=== PATIENT | female | born 1995 | race Two or more races ===

== ENCOUNTER 2017-07-12 22:18 | Emergency (ER) | payer MEDICAID ==
[~2017-07-12] VITALS: Ht 157.5 cm; Wt 86.2 kg
[2017-07-12] MEDS ORDERED: IV NORMAL SALINE 1000ML BAG 1,000 ML IV SCH (23:00)
--- NOTE | 2017-07-12 23:03 | PHYS DOC ---
Past Medical History Past Medical History: Anxiety, Bipolar, Depression, Hyperthyroid Past Surgical History: No Surgical History Additional Information: non smoker Alcohol Use: Occasionally Drug Use: None Social History Narrative: deaf Adult General Chief Complaint Chief Complaint: COUGH HPI HPI Patient is a 21 year old female who presents with cough and difficulty breathing. She has had a nonproductive cough for the past 3-4 days. No hemoptysis. Does not smoke tobacco. Does not take control pills. No recent travel. She denies any chest pain. Feels her heart racing at times. No known fever. No vomiting. Sharp chest pain; "7"; non radiating. Review of Systems Review of Systems Constitutional: Denies fever or chills Eyes: Denies change in visual acuity, redness, or eye pain HENT: Denies nasal congestion or sore throat Respiratory: POS cough and shortness of breath Cardiovascular: chest pain. GI: Denies abdominal pain, nausea, vomiting, bloody stools or diarrhea : Denies dysuria or hematuria Musculoskeletal: Denies back pain or joint pain Integument: Denies rash or skin lesions Neurologic: Denies headache, focal weakness or sensory changes Current Medications Current Medications Current Medications Medications (Trade) Dose Ordered Sig/Janeth Start Time Stop Time Status Last Admin Dose Admin Sodium Chloride 1,000 ml @ 1,000 mls/hr Q1H 07/12/17 23:00 07/12/17 23:59 DC 07/12/17 23:02 1,000 MLS/HR Allergies Allergies Allergies Coded Allergies Type Severity Reaction Last Updated Verified No Known Drug Allergies 07/12/17 No Physical Exam Physical Exam Constitutional: Well developed, well nourished, no acute distress, non-toxic appearance. HENT: Normocephalic, atraumatic, bilateral external ears normal, oropharynx moist, no oral exudates, nose normal. Eyes: PERRLA, EOMI, conjunctiva normal, no discharge. Neck: Normal range of motion, no tenderness, supple, no stridor. Cardiovascular:Heart rate regular rhythm, tachycardic, no murmur Lungs & Thorax: Bilateral breath sounds clear to auscultation Abdomen: Bowel sounds normal, soft, no tenderness, no masses, no pulsatile masses. Skin: Warm, dry, no erythema, no rash. Back: No tenderness, no CVA tenderness. Extremities: No tenderness, no cyanosis, no clubbing, ROM intact, no edema. Neurologic: Alert and oriented X 3, normal motor function, normal sensory function, no focal deficits noted. Psychologic: Affect normal, judgement normal, mood normal. Current Patient Data Vital Signs Vital Signs Date Time Temp Pulse Resp B/P (MAP) Pulse Ox O2 Delivery O2 Flow Rate FiO2 07/12/17 23:45 99 24 127/63 (84) 99 Room Air 07/12/17 22:37 98.5 98.5 Lab Values Laboratory Tests Test 07/12/17 22:39 07/12/17 23:00 POC Urine HCG, Qualitative Hcg negative (Negative) White Blood Count 8.8 x10^3/uL (4.0-11.0) Red Blood Count 4.29 x10^6/uL (3.50-5.40) Hemoglobin 13.1 g/dL (12.0-15.5) Hematocrit 37.9 % (36.0-47.0) Mean Corpuscular Volume 88 fL (79-100) Mean Corpuscular Hemoglobin 31 pg (25-35) Mean Corpuscular Hemoglobin Concent 35 g/dL (31-37) Red Cell Distribution Width 13.0 % (11.5-14.5) Platelet Count 260 x10^3/uL (140-400) Neutrophils (%) (Auto) 61 % (31-73) Lymphocytes (%) (Auto) 25 % (24-48) Monocytes (%) (Auto) 10 % (0-9) H Eosinophils (%) (Auto) 3 % (0-3) Basophils (%) (Auto) 1 % (0-3) Neutrophils # (Auto) 5.4 x10^3uL (1.8-7.7) Lymphocytes # (Auto) 2.2 x10^3/uL (1.0-4.8) Monocytes # (Auto) 0.9 x10^3/uL (0.0-1.1) Eosinophils # (Auto) 0.3 x10^3/uL (0.0-0.7) Basophils # (Auto) 0.1 x10^3/uL (0.0-0.2) D-Dimer (Natacha) 0.38 ug/mlFEU (0.00-0.50) Sodium Level 140 mmol/L (136-145) Potassium Level 3.0 mmol/L (3.5-5.1) L Chloride Level 101 mmol/L (98-107) Carbon Dioxide Level 29 mmol/L (21-32) Anion Gap 10 (6-14) Blood Urea Nitrogen 18 mg/dL (7-20) Creatinine 0.6 mg/dL (0.6-1.0) Estimated GFR (Cockcroft-Gault) 128.8 BUN/Creatinine Ratio 30 (6-20) H Glucose Level 111 mg/dL (70-99) H Calcium Level 9.7 mg/dL (8.5-10.1) Magnesium Level 1.9 mg/dL (1.8-2.4) Total Bilirubin 0.4 mg/dL (0.2-1.0) Aspartate Amino Transferase (AST) 15 U/L (15-37) Alanine Aminotransferase (ALT) 27 U/L (14-59) Alkaline Phosphatase 71 U/L (46-116) Creatine Kinase 49 U/L (26-192) Creatine Kinase MB (Mass) < 0.5 ng/mL (0.0-3.6) Creatine Kinase MB Relative Index % (0-4) Troponin I Quantitative < 0.017 ng/mL (0.000-0.055) GX-Kjy-M-Type Natriuretic Peptide 8 pg/mL (0-124) Total Protein 7.8 g/dL (6.4-8.2) Albumin 3.8 g/dL (3.4-5.0) Albumin/Globulin Ratio 1.0 (1.0-1.7) Thyroid Stimulating Hormone (TSH) 7.270 uIU/mL (0.358-3.74) H Laboratory Tests 07/12/17 23:00 Laboratory Tests 07/12/17 23:00 EKG EKG EKG interpreted by myself at 22:44 PM shows sinus tachycardia, rate of 110, non- specific ST changes. Radiology/Procedures Radiology/Procedures CXR interpreted by myself at 0045AM: No acute infiltrate, no pleural effusion, normal cardiac silhouette. Course & Med Decision Making Course & Med Decision Making Differential diagnosis for chest pain includes but is not limited to: Pericarditis, myocarditis, endocarditis, pneumothorax, pneumonia, aortic dissection, esophageal spasm, esophagitis, peptic ulcer disease, acute coronary syndrome, mediastinitis, Boerhaave syndrome, musculoskeletal chest wall pain, costochondritis, intercostal strain, rib fracture, pulmonary contusion, pneumonitis, pleural effusion, pericardial effusion, pericardial tamponode, and pleurisy. Differential diagnosis includes but not limited to: Acute myocardial ischemia, heart failure, cardiac tamponade, bronchospasm, pulmonary embolism, pneumothorax , pulmonary infection i.e. bronchitis or pneumonia, upper airway obstruction, anaphylaxis, aspiration, psychogenic, pulmonary contusion, toxidrome, pneumomediastinum, noncardiogenic pulmonary edema or ARDS, COPD, tuberculosis, cystic fibrosis, asthma, high altitude pulmonary edema, valvular dysfunction, cardiac dysrhythmia, stroke, neuromuscular diseases like myasthenia gravis gravis, ALS, Guillain-Smiley syndrome, metabolic acidosis to include diabetic ketoacidosis, sepsis, and obstructive disorders like massive obesity MACE Scoring: History: Highly suspicious (2 points); Moderately suspicious (1 point). Slightly suspicious (0 point). EKG: ST segment depression (2 points). Nonspecific repolarization disturbance ( 1 point). normal (0 point) Age: Greater than 65 (2 points), 65-45 (1 point); less than 45 years old (0 points). Risk factors:> 3 risk factors (2 points), 1-2 risk factors (one point), no risk factors (0 point). Troponin: > 2 times normal (2 points), 1-2 times normal (1 point) normal limits (0 point) Total score: ___1___ Score % pts MACE/n MACE Policy 0-3: 32% 1.9% 0.05% Discharge 4-6: 51% 413/3136 13% 1.3% Observation Risk management 7-10: 17% 518/1045 50% 2.8% Observation Treatment, CAGb PERC RULE Criteria: Age < than 50 years-YES Heart rate < 100-NO Oxygen saturation > 95%-YES No hemoptysis-YES No estrogen use-YES No prior DVT or PE-YES No unilateral leg swelling-YES No surgery or trauma requiring hospitalization within the prior 4 weeks-YES PERC rule not satisfied ALEXEY score for NSTEMI: Age 65: No=0; Yes=1 3 CAD risk factors: Family history of CAD, hypertension, hypercholesterolemia, diabetes, family history of CAD, or current smoker: No=0; Yes=1 Known CAD (stenosis 50%: No=0; Yes=1 ASA use in past 7 days: No=0; Yes=1 Severe angina ( 2 episodes in 24 hrs): No=0; Yes=[address] changes 0.5m: No=0; Yes=1 Positive cardiac marker: No=0; Yes=1 Score: 0 At 0010 AM: Reviewed all the findings with the patient. Her TSH is quite high and upon questioning the patient states she's not been taking her thyroid medication correctly. She does have her medication here to take. They're here from [place] but they do not have a place to stay. We'll try to see if we can assist with a homeless shelters. She is given the free clinic referral page from [place]. At this moment there is no evidence of an acute emergent event. [id number]%; vitals reviewed at discharged. Pulse in the 90's I have spoken with the patient and/or caregivers. I have explained the patient' s condition, diagnosis and treatment plan based on the information available to me at this time. I have answered the patient's and/or caregiver's questions and addressed any concerns. The patient and/or caregivers have as good an understanding of the patient's diagnosis, condition and treatment plan as can be expected at this point. The patient's condition is stable and appropriate for discharge from the emergency department. The patient will pursue further outpatient evaluation with the primary care physician or other designated or consulting physician as outlined in the discharge instructions. The patient and/or caregivers are agreeable to this plan of care and follow-up instructions have been explained in detail. The patient and/or caregivers have received these instructions in written format and have expressed an understanding of the discharge instructions. The patient and/or caregivers are aware that any significant change in condition or worsening of symptoms should prompt an immediate return to this or the closest emergency department or a call to 911. Dragon Disclaimer Dragon Disclaimer This electronic medical record was generated, in whole or in part, using a voice recognition dictation system. Departure Departure Impression: Primary Impression: Palpitation Additional Impression: Thyroid disease Disposition: HOME, SELF-CARE Condition: STABLE Referrals: NO PCP (PCP) Additional Instructions: Take your thyroid medication as directed. You have been given a sheet for area physicians if you are staying in town. Problem Qualifiers NADIA JOLLEY MD Jul 12, 2017 23:03
[2017-07-12 23:08] LABS: BASO # 0.1 x10^3/uL (0.0-0.2); BASO % 1 % (0-3); EOS % 3 % (0-3); HEMATOCRIT 37.9 % (36.0-47.0); HEMOGLOBIN 13.1 g/dL (12.0-15.5); LYMPH # 2.2 x10^3/uL (1.0-4.8); LYMPH % 25 % (24-48); MEAN CORPUSCULAR HEMOGLOBIN 31 pg (25-35); MEAN CORPUSCULAR HGB CONC 35 g/dL (31-37); MEAN CORPUSCULAR VOLUME 88 fL (79-100); MONO % 10 % (0-9); NEUT % 61 % (31-73); PLATELET COUNT 260 x10^3/uL (140-400); RED BLOOD COUNT 4.29 x10^6/uL (3.50-5.40); WHITE BLOOD COUNT 8.8 x10^3/uL (4.0-11.0)
[2017-07-12 23:21] LABS: CALCIUM 9.7 mg/dL (8.5-10.1); CREATININE 0.6 mg/dL (0.6-1.0); GFR 128.8
[2017-07-12 23:26] LABS: ALBUMIN 3.8 g/dL (3.4-5.0); TOTAL BILIRUBIN 0.4 mg/dL (0.2-1.0); TOTAL PROTEIN 7.8 g/dL (6.4-8.2)
[2017-07-12 23:36] LABS: CKMB MASS < 0.5 ng/mL (0.0-3.6); CREATINE KINASE 49 U/L (26-192)
[2017-07-12 23:45] VITALS: BP 127/63
--- NOTE | 2017-07-13 07:18 | RAD ---
Indication: Chest pain Technique: Upright portable chest radiograph was obtained. No comparison is available. Findings: The lungs are clear. The cardiopulmonary silhouette is within normal limits. The bony structures are intact. Leads overlie the patient. Patient was shielded. Impression: No active pulmonary disease.
--- NOTE | 2017-07-13 08:31 | EKG ---
[facility] [address] [place] [address] Test Date: 2017-07-12 Test Time: 22:44:03 Pat Name: CHELY KLINE Department: Room: Gender: F Fitness Worker: : 1995 Requested By: NADIA JOLLEY Order Number: [id number] Reading MD: Measurements Intervals [place] Rate: 110 P: 34 WV: 156 QRS: 52 QRSD: 82 T: -20 QT: 306 QTc: 419 Interpretive Statements SINUS TACHYCARDIA QRS(T) CONTOUR ABNORMALITY CONSIDER ANTEROLATERAL MYOCARDIAL DAMAGE T ABNORMALITY IN INFERIOR LEADS RI6.01 Unconfirmed report No previous ECG available for comparison
== END 2017-07-13 00:30 | disposition home or self-care (01) ==
LOC: ER 22:18
DX: R00.2 Palpitations (principal); E07.9 Disorder of thyroid, unspecified; R05 Cough; R07.89 Other chest pain; R06.00 Dyspnea, unspecified; F31.9 Bipolar disorder, unspecified; E05.90 Thyrotoxicosis, unspecified without thyrotoxic crisis or storm
CPT/HCPCS: 36415; 71010; 80053; 81025; 82553; 83735; 83880; 84443; 84484; 85025; 85379; 93005; 96360; 99285; J7030